=== PATIENT | male | born 1945 | race Caucasian/White ===

== ENCOUNTER 2024-05-16 06:09 | Emergency (ER) | payer MEDICARE, OTHER ==
[~2024-05-16] VITALS: Ht 170.2 cm; Wt 79.4 kg
[2024-05-16 07:21] LABS: BASOPHILS # (AUTO) 0.1 K/UL (0.0-0.2); BASOPHILS % (AUTO) 0.4 % (0.0-2.0); EOSINOPHILS # (AUTO) 0.2 K/uL (0.0-0.7); HEMATOCRIT 44.6 % (36.7-47.1); HEMOGLOBIN 14.5 g/dL (12.5-16.3); LYMPHOCYTES % (AUTO) 11.1 % (20.5-51.5); MEAN CORPUSCULAR HEMOGLOBIN 27.2 uug (23.8-33.4); MEAN CORPUSCULAR HGB CONC 32 g/dL (32.5-36.3); MEAN CORPUSCULAR VOLUME 83.8 fL (73.0-96.2); MONOCYTES # (AUTO) 0.6 K/uL (0.1-1.30); MONOCYTES % (AUTO) 3.1 % (0.0-11.0); NEUTROPHILS % (AUTO) 84.4 % (38.5-71.5); PLATELET COUNT (AUTO) 229 K/uL (152-348); RED BLOOD CELL COUNT(AUTO) 5.33 MIL/uL (4.06-5.63); WHITE BLOOD COUNT (AUTO) 17.8 K/uL (3.6-10.2)
[2024-05-16 07:38] LABS: ALANINE AMINOTRANSFERASE 23 U/L (16-63); ALBUMIN 3.8 g/dL (3.4-5.0); ALKALINE PHOSPHATASE 145 U/L (50-136); ASPARTATE AMINOTRANSFERASE 10 U/L (15-37); BILIRUBIN,DIRECT 0.2 mg/dL (0.0-0.2); BILIRUBIN,TOTAL 0.7 mg/dL (0.2-1.0); CALCIUM 10.5 mg/dL (8.5-10.1); CARBON DIOXIDE 20 mmol/L (21-32); CHLORIDE 101 mmol/L (98-107); CREATININE 1.5 mg/dL (0.6-1.3); LIPASE 159 U/L (16-77); POTASSIUM 4.9 mmol/L (3.5-5.1); SODIUM SERUM 136 mmol/L (136-145); TOTAL PROTEIN, SERUM 7.6 g/dL (6.4-8.2); UREA NITROGEN, BLOOD 31 mg/dL (7-18)
[2024-05-16 08:12] LABS: GLUCOSE 497 mg/dL (74-106)
[2024-05-16] MEDS ORDERED: INSULIN REGULAR, HUMAN 1000 UNIT/10 ML VIAL ONE (08:42)
[2024-05-16] MEDS: IV NORMAL SALINE 1000 ML BAG IV ONE (08:46)
[2024-05-16] MEDS: INSULIN REGULAR, HUMAN 1000 UNIT/10 ML VIAL IV ONE (08:53)
[2024-05-16 09:32] LABS: *BILIRUBIN,URIN NEGATIVE (NEGATIVE); *BLOOD, URINE 2+ (NEGATIVE); *CLARITY,URINE CLEAR (CLEAR); *COLOR,URINE YELLOW (YELLOW); *KETONES,URINE 1+ (NEGATIVE); *PROTEIN,URINE NEGATIVE (NEGATIVE); *UROBILINOGEN,URINE 0.2 E.U./dl (NORMAL); LEUKOCYTE ESTERASE ,URINE NEGATIVE (NEGATIVE); NITRITE, URINE NEGATIVE (NEGATIVE)
[2024-05-16 09:37] LABS: UGLUCOSE 3+ (NEGATIVE)
[2024-05-16 09:43] LABS: BACTERIA,URINE FEW /HPF (NONE SEEN); RBC,URINE 20-50 /HPF (0-3); SQUAMOUS EPITHELIAL CELL,UR FEW /HPF (NONE SEEN); WBC,URINE 0-3 /HPF (0-3)
[2024-05-16 09:44] LABS: SPERM,URINE FEW /HPF (NONE SEEN)
[2024-05-16] MEDS ORDERED: TAMS-3 PO (10:41)
[2024-05-16] MEDS ORDERED: POLY17PO4 PO (10:41)
[2024-05-16 11:12] VITALS: BP 138/76; O2SAT 98
== END 2024-05-16 11:13 | disposition home or self-care (01) ==
LOC: ER 06:34
DX: I31.39 Other pericardial effusion (noninflammatory) (principal); S32.028A Other fracture of second lumbar vertebra, initial encounter for closed fracture; R10.30 Lower abdominal pain, unspecified; K59.00 Constipation, unspecified; R33.9 Retention of urine, unspecified; F03.90 Unspecified dementia, unspecified severity, without behavioral disturbance, psychotic disturbance, mood disturbance, and anxiety; E11.65 Type 2 diabetes mellitus with hyperglycemia; D72.829 Elevated white blood cell count, unspecified; R91.1 Solitary pulmonary nodule; N18.9 Chronic kidney disease, unspecified; R31.9 Hematuria, unspecified; D18.09 Hemangioma of other sites; X58.XXXA Exposure to other specified factors, initial encounter; Y93.89 Activity, other specified; Y92.89 Other specified places as the place of occurrence of the external cause; Y99.8 Other external cause status
CPT/HCPCS: 99285; 74176; 96374; 96361; 80076; 80048; 81001; 82962; 83690; 85025; 36415; 51702; J1815; J7040; A4606; A4663

== ENCOUNTER 2024-10-19 04:45 | Inpatient (IN) | payer MEDICARE, OTHER ==
[~2024-10-19] VITALS: Ht 167.6 cm; Wt 79.4 kg
[~2024-10-19 04:45] MED LIST: POLY17PO4 PO; TAMS-3 PO
[2024-10-19] MEDS: IV NS 1000 ML 1,000 ML IV ONE (05:58)
[2024-10-19 05:59] LABS: BASOPHILS # (AUTO) 0.1 K/UL (0.0-0.2); BASOPHILS % (AUTO) 0.5 % (0.0-2.0); EOSINOPHILS # (AUTO) 0.3 K/uL (0.0-0.7); EOSINOPHILS % (AUTO) 1.4 % (0.0-7.0); HEMATOCRIT 41.9 % (36.7-47.1); HEMOGLOBIN 13.7 g/dL (12.5-16.3); LYMPHOCYTES % (AUTO) 4.9 % (20.5-51.5); MEAN CORPUSCULAR HEMOGLOBIN 26.7 uug (23.8-33.4); MEAN CORPUSCULAR HGB CONC 33 g/dL (32.5-36.3); MEAN CORPUSCULAR VOLUME 81.5 fL (73.0-96.2); MONOCYTES # (AUTO) 1.4 K/uL (0.1-1.30); MONOCYTES % (AUTO) 6.6 % (0.0-11.0); NEUTROPHILS # (AUTO) 18.3 K/uL (1.8-8.9); NEUTROPHILS % (AUTO) 86.6 % (38.5-71.5); PLATELET COUNT (AUTO) 267 K/uL (152-348); RED BLOOD CELL COUNT(AUTO) 5.15 MIL/uL (4.06-5.63); RED CELL DISTRIBUTION WIDTH 14.7 % (12.1-16.2); WHITE BLOOD COUNT (AUTO) 21.1 K/uL (3.6-10.2)
[2024-10-19 06:08] LABS: CALCIUM 10.6 mg/dL (8.5-10.1); CARBON DIOXIDE 21 mmol/L (21-32); CHLORIDE 98 mmol/L (98-107); CREATININE 1.6 mg/dL (0.6-1.3); GLUCOSE 301 mg/dL (74-106); POTASSIUM 4.4 mmol/L (3.5-5.1); SODIUM SERUM 135 mmol/L (136-145); UREA NITROGEN, BLOOD 26 mg/dL (7-18)
[2024-10-19 06:19] LABS: *BILIRUBIN,URIN NEGATIVE (NEGATIVE); *BLOOD, URINE 2+ (NEGATIVE); *CLARITY,URINE CLOUDY (CLEAR); *COLOR,URINE YELLOW (YELLOW); *KETONES,URINE 2+ (NEGATIVE); *PROTEIN,URINE 1+ (NEGATIVE); *UROBILINOGEN,URINE 0.2 E.U./dl (NORMAL); LEUKOCYTE ESTERASE ,URINE 1+ (NEGATIVE); NITRITE, URINE NEGATIVE (NEGATIVE); PH,URINE 5.5 (5.0-8.0); UGLUCOSE 3+ (NEGATIVE)
[2024-10-19 06:22] LABS: ALANINE AMINOTRANSFERASE 24 U/L (16-63); ALBUMIN 3.1 g/dL (3.4-5.0); ALKALINE PHOSPHATASE 140 U/L (50-136); ASPARTATE AMINOTRANSFERASE 20 U/L (15-37); BILIRUBIN,TOTAL 0.7 mg/dL (0.2-1.0); NT-PRO BNP 118 pg/mL (0-125); TOTAL PROTEIN, SERUM 7.2 g/dL (6.4-8.2)
[2024-10-19 06:25] LABS: WBC,URINE 50-80 /HPF (0-3)
[2024-10-19 06:26] LABS: BACTERIA,URINE MODERATE /HPF (NONE SEEN); SQUAMOUS EPITHELIAL CELL,UR FEW /HPF (NONE SEEN); YEAST,URINE FEW /HPF (NONE SEEN)
[2024-10-19] MEDS ORDERED: DOCU100C36 PO (06:30)
[2024-10-19] MEDS ORDERED: ASPI81TA31 PO (06:30)
[2024-10-19] MEDS ORDERED: DUTA0.5C37 PO (06:30)
[2024-10-19] MEDS ORDERED: PIOG30TA10 PO (06:30)
[2024-10-19] MEDS ORDERED: SILO8CAP2 PO (06:30)
[2024-10-19] MEDS ORDERED: ATOR20TA PO (06:30)
[2024-10-19] MEDS ORDERED: RISP0.5T65 PO (06:30)
[2024-10-19] MEDS ORDERED: SEMA14TA PO (06:30)
[2024-10-19] MEDS ORDERED: OMEP40CA21 PO (06:30)
[2024-10-19] MEDS ORDERED: CARV6.252 PO (06:30)
[2024-10-19] MEDS ORDERED: OXCA150T13 PO (06:30)
[2024-10-19] MEDS ORDERED: DAPA10TA PO (06:30)
[2024-10-19] MEDS ORDERED: ALLO100T PO (06:30)
[2024-10-19] MEDS ORDERED: LINA145C PO (06:30)
[2024-10-19] MEDS ORDERED: GLIP10TA11 PO (06:30)
[2024-10-19 06:51] LABS: DIFFERENTIAL COMMENT 1
[2024-10-19] MEDS ORDERED: PIPERACILLIN/TAZOBACTAM/D5W 50 ML IV ONE (07:23)
[2024-10-19] MEDS: PIPERACILLIN SODIUM/TAZOBACTAM 3.375 G in IV DEXTROSE 5% 50 ML IV ONE (07:26)
[2024-10-19] MEDS ORDERED: MAGNESIUM HYDROXIDE 30 ML LIQUID UDC PO PRN (08:30)
[2024-10-19] MEDS ORDERED: ACETAMINOPHEN 325 MG TABLET PO PRN (08:30)
[2024-10-19] MEDS ORDERED: ONDANSETRON 4 MG/2 ML VIAL IV PRN (08:30)
[2024-10-19] MEDS ORDERED: REMEDY ESSENTIAL ZINC PASTE 113 GM TP PRN (08:30)
[2024-10-19] MEDS ORDERED: ENOXAPARIN SODIUM 40 MG/0.4 ML DISP.SYRIN SQ ONE (10:17)
[2024-10-19] MEDS: IV NS 1000 ML 1,000 ML IV PRN (10:27)
[2024-10-19] MEDS: ENOXAPARIN SODIUM 40 MG/0.4 ML DISP.SYRIN SQ SCH (10:30)
[2024-10-19] MEDS ORDERED: PIPERACILLIN SODIUM/TAZOBACTAM 3.375 G in IV DEXTROSE 5% 50 ML IV SCH (12:00)
[2024-10-19 14:58] VITALS: BP 128/63; TEMP 97.8; O2SAT 97
[2024-10-19 15:26] VITALS: BP 128/61; TEMP 97.9; O2SAT 92
[2024-10-19] MEDS: PIPERACILLIN SODIUM/TAZOBACTAM 3.375 G in IV DEXTROSE 5% 100 ML IV SCH (16:19)
[2024-10-19 19:42] VITALS: BP 106/49; TEMP 98.4; O2SAT 92
[2024-10-19] MEDS ORDERED: DEXTROSE 50% 50 ML DISP.SYRIN IV PRN (23:00)
[2024-10-19 23:09] LABS: *CREATININE,URINE 23.9 mg/dL (30-125); *URINE TOTAL PROTEIN RANDOM 36.1 mg/dL (<150/24HR)
[2024-10-19 23:11] LABS: *BILIRUBIN,URIN NEGATIVE (NEGATIVE); *BLOOD, URINE 2+ (NEGATIVE); *CLARITY,URINE CLEAR (CLEAR); *COLOR,URINE YELLOW (YELLOW); *KETONES,URINE TRACE (NEGATIVE); *PROTEIN,URINE 1+ (NEGATIVE); *UROBILINOGEN,URINE 0.2 E.U./dl (NORMAL); LEUKOCYTE ESTERASE ,URINE TRACE (NEGATIVE); NITRITE, URINE NEGATIVE (NEGATIVE); PH,URINE 5.5 (5.0-8.0); UGLUCOSE 3+ (NEGATIVE)
[2024-10-19 23:23] LABS: BACTERIA,URINE FEW /HPF (NONE SEEN); MUCUS,URINE FEW /LPF (0-FEW); SQUAMOUS EPITHELIAL CELL,UR FEW /HPF (NONE SEEN); WBC,URINE 0-3 /HPF (0-3)
[2024-10-20] VITALS (7 sets, daily range): BP systolic 99–123; BP diastolic 58–75; TEMP 97.4–98.9; O2SAT 93–98
[2024-10-20] MEDS: PANTOPRAZOLE SODIUM 40 MG TABLET.DR PO SCH (06:32)
[2024-10-20] MEDS: BLOOD SUGAR DIAGNOSTIC 1 EACH STRIP VI SCH (06:42)
[2024-10-20 07:08] LABS: BASOPHILS # (AUTO) 0.1 K/UL (0.0-0.2); BASOPHILS % (AUTO) 0.6 % (0.0-2.0); EOSINOPHILS # (AUTO) 0.3 K/uL (0.0-0.7); EOSINOPHILS % (AUTO) 2.4 % (0.0-7.0); HEMATOCRIT 33.3 % (36.7-47.1); HEMOGLOBIN 11.3 g/dL (12.5-16.3); LYMPHOCYTES # (AUTO) 1.5 K/uL (0.8-4.8); LYMPHOCYTES % (AUTO) 13.4 % (20.5-51.5); MEAN CORPUSCULAR HEMOGLOBIN 27.7 uug (23.8-33.4); MEAN CORPUSCULAR HGB CONC 34 g/dL (32.5-36.3); MEAN CORPUSCULAR VOLUME 81.5 fL (73.0-96.2); MONOCYTES # (AUTO) 1.3 K/uL (0.1-1.30); MONOCYTES % (AUTO) 11.4 % (0.0-11.0); NEUTROPHILS # (AUTO) 8.3 K/uL (1.8-8.9); NEUTROPHILS % (AUTO) 72.2 % (38.5-71.5); PLATELET COUNT (AUTO) 207 K/uL (152-348); RED BLOOD CELL COUNT(AUTO) 4.09 MIL/uL (4.06-5.63); RED CELL DISTRIBUTION WIDTH 14.5 % (12.1-16.2); WHITE BLOOD COUNT (AUTO) 11.6 K/uL (3.6-10.2)
[2024-10-20 07:23] LABS: DIFFERENTIAL COMMENT 1
[2024-10-20 07:30] LABS: ALANINE AMINOTRANSFERASE 28 U/L (16-63); ALBUMIN 2.3 g/dL (3.4-5.0); ALKALINE PHOSPHATASE 105 U/L (50-136); ASPARTATE AMINOTRANSFERASE 38 U/L (15-37); BILIRUBIN,DIRECT 0.1 mg/dL (0.0-0.2); BILIRUBIN,TOTAL 0.3 mg/dL (0.2-1.0); CARBON DIOXIDE 21 mmol/L (21-32); CHLORIDE 105 mmol/L (98-107); CREATININE 1.4 mg/dL (0.6-1.3); GLUCOSE 282 mg/dL (74-106); MAGNESIUM 2.4 mg/dL (1.8-2.4); PHOSPHOROUS 3.5 mg/dL (2.5-4.9); POTASSIUM 3.7 mmol/L (3.5-5.1); SODIUM SERUM 134 mmol/L (136-145); TOTAL PROTEIN, SERUM 6.3 g/dL (6.4-8.2); UREA NITROGEN, BLOOD 29 mg/dL (7-18)
[2024-10-20] MEDS: INSULIN REGULAR, HUMAN 1000 UNIT/10 ML VIAL SQ PRN (08:05)
[2024-10-20 08:09] LABS: CREATINE KINASE, TOTAL 1171 U/L (39-308)
[2024-10-20 08:36] LABS: THYROID STIMULATING HORMONE 0.925 mIU/mL (0.358-3.740)
[2024-10-20] MEDS ORDERED: Linaclotide (Linzess) 145 MCG) PO SCH (09:00)
[2024-10-20] MEDS: PIOGLITAZONE HCL 15 MG TABLET PO SCH (09:09)
[2024-10-20] MEDS: DAPAGLIFLOZIN PROPANEDIOL 10 MG TABLET PO SCH (09:09)
[2024-10-20] MEDS: ASPIRIN 81 MG TAB.CHEW PO SCH (09:09)
[2024-10-20] MEDS: DOCUSATE SODIUM 100 MG CAPSULE PO SCH (09:10)
[2024-10-20] MEDS: DUTASTERIDE 0.5 MG CAPSULE PO SCH (09:10)
[2024-10-20] MEDS: OXCARBAZEPINE 150 MG TABLET PO SCH (09:18)
[2024-10-20] MEDS ORDERED: LINA290C PO (14:23)
[2024-10-20] MEDS ORDERED: CARV6.252 PO (14:27)
[2024-10-20] MEDS ORDERED: RISP1TAB7 PO (15:09)
[2024-10-20] MEDS: CARVEDILOL 6.25 MG TABLET PO SCH (18:06)
[2024-10-20] MEDS ORDERED: Medication Not On Formulary EA (Silodosin (Rapaflo) 8 MG) PO SCH (21:00)
[2024-10-20] MEDS: ATORVASTATIN 20 MG TABLET PO SCH (21:14)
[2024-10-20] MEDS: SILODOSIN 8 MG PO SCH (21:14)
[2024-10-20] MEDS: ALLOPURINOL 100 MG TABLET PO SCH (21:14)
[2024-10-20] MEDS: risperiDONE 1 MG TABLET PO SCH (21:14)
[2024-10-20] MEDS: INSULIN REGULAR, HUMAN 300 UNITS/3 ML VIAL SQ PRN (21:37)
[2024-10-21] VITALS (7 sets, daily range): BP systolic 103–146; BP diastolic 50–71; TEMP 97.2–98; O2SAT 90–98
[2024-10-21 06:09] LABS: PTH, INTACT 20 pg/mL (15-65)
[2024-10-21 07:52] LABS: BASOPHILS % (AUTO) 0.3 % (0.0-2.0); EOSINOPHILS # (AUTO) 0.6 K/uL (0.0-0.7); EOSINOPHILS % (AUTO) 4.7 % (0.0-7.0); HEMATOCRIT 35.2 % (36.7-47.1); HEMOGLOBIN 11.8 g/dL (12.5-16.3); LYMPHOCYTES # (AUTO) 3.1 K/uL (0.8-4.8); LYMPHOCYTES % (AUTO) 22.6 % (20.5-51.5); MEAN CORPUSCULAR HEMOGLOBIN 27.4 uug (23.8-33.4); MEAN CORPUSCULAR HGB CONC 34 g/dL (32.5-36.3); MEAN CORPUSCULAR VOLUME 81.3 fL (73.0-96.2); MONOCYTES # (AUTO) 1.2 K/uL (0.1-1.30); MONOCYTES % (AUTO) 8.8 % (0.0-11.0); NEUTROPHILS # (AUTO) 8.7 K/uL (1.8-8.9); NEUTROPHILS % (AUTO) 63.6 % (38.5-71.5); PLATELET COUNT (AUTO) 213 K/uL (152-348); RED BLOOD CELL COUNT(AUTO) 4.32 MIL/uL (4.06-5.63); RED CELL DISTRIBUTION WIDTH 14.6 % (12.1-16.2); WHITE BLOOD COUNT (AUTO) 13.7 K/uL (3.6-10.2)
[2024-10-21 08:09] LABS: DIFFERENTIAL COMMENT 1
[2024-10-21 08:11] LABS: CALCIUM 9.5 mg/dL (8.5-10.1); CARBON DIOXIDE 23 mmol/L (21-32); CHLORIDE 105 mmol/L (98-107); CREATININE 1.3 mg/dL (0.6-1.3); GLUCOSE 130 mg/dL (74-106); PHOSPHOROUS 1.9 mg/dL (2.5-4.9); POTASSIUM 3.6 mmol/L (3.5-5.1); SODIUM SERUM 138 mmol/L (136-145); UREA NITROGEN, BLOOD 24 mg/dL (7-18)
[2024-10-21] MEDS ORDERED: Medication Not On Formulary EA (Semaglutide (Rybelsus) 14 MG) PO SCH (09:00)
[2024-10-21] MEDS: SEMAGLUTIDE 14 MG PO SCH (09:35)
[2024-10-21] MEDS: LINZESS 290 MCG PO SCH (09:36)
[2024-10-21] MEDS: FLUCONAZOLE 200 MG/NS 100ML IV 200 MG in PREMIXED 1 EACH IV ONE (11:48)
[2024-10-21] MEDS: NEUTRA PHOS PACKET PO ONE (17:32)
[2024-10-22] VITALS (7 sets, daily range): BP systolic 98–137; BP diastolic 60–77; TEMP 97.3–98.5; O2SAT 93–97
[2024-10-22 07:00] LABS: BASOPHILS # (AUTO) 0.1 K/UL (0.0-0.2); BASOPHILS % (AUTO) 0.6 % (0.0-2.0); EOSINOPHILS # (AUTO) 0.6 K/uL (0.0-0.7); EOSINOPHILS % (AUTO) 4.7 % (0.0-7.0); HEMATOCRIT 37.5 % (36.7-47.1); HEMOGLOBIN 12.5 g/dL (12.5-16.3); LYMPHOCYTES # (AUTO) 3.4 K/uL (0.8-4.8); LYMPHOCYTES % (AUTO) 29.2 % (20.5-51.5); MEAN CORPUSCULAR HEMOGLOBIN 26.8 uug (23.8-33.4); MEAN CORPUSCULAR HGB CONC 33 g/dL (32.5-36.3); MEAN CORPUSCULAR VOLUME 80.4 fL (73.0-96.2); MONOCYTES % (AUTO) 8.5 % (0.0-11.0); NEUTROPHILS # (AUTO) 6.7 K/uL (1.8-8.9); PLATELET COUNT (AUTO) 217 K/uL (152-348); RED BLOOD CELL COUNT(AUTO) 4.67 MIL/uL (4.06-5.63); RED CELL DISTRIBUTION WIDTH 14.4 % (12.1-16.2); WHITE BLOOD COUNT (AUTO) 11.8 K/uL (3.6-10.2)
[2024-10-22 07:10] LABS: DIFFERENTIAL COMMENT 1
[2024-10-22 07:16] LABS: CALCIUM 9.4 mg/dL (8.5-10.1); CARBON DIOXIDE 23 mmol/L (21-32); CHLORIDE 104 mmol/L (98-107); CREATININE 1.2 mg/dL (0.6-1.3); GLUCOSE 181 mg/dL (74-106); MAGNESIUM 1.9 mg/dL (1.8-2.4); PHOSPHOROUS 2.5 mg/dL (2.5-4.9); POTASSIUM 3.7 mmol/L (3.5-5.1); SODIUM SERUM 136 mmol/L (136-145); UREA NITROGEN, BLOOD 17 mg/dL (7-18)
[2024-10-22] MEDS ORDERED: FLUC200T8 PO (09:03)
[2024-10-22] MEDS: FLUCONAZOLE 200 MG/NS 100ML IV 200 MG in PREMIXED 1 EACH IV SCH (11:16)
[2024-10-22] MEDS: FUROSEMIDE 20 MG/2 ML VIAL IV SCH (14:54)
[2024-10-23 00:18] VITALS: BP 103/69; TEMP 98.6; O2SAT 95
[2024-10-23 04:01] VITALS: BP 104/62; TEMP 97.9; O2SAT 93
[2024-10-23 07:38] VITALS: BP 119/64; TEMP 97.9; O2SAT 94
[2024-10-23] MEDS ORDERED: FURO-152 PO (09:17)
[2024-10-23 10:07] LABS: A/G RATIO 0.8 (0.7-1.7); ALBUMIN 2.5 g/dL (2.9-4.4); ALPHA-1-GLOBULIN 0.3 g/dL (0.0-0.4); ALPHA-2-GLOBULIN 1.1 g/dL (0.4-1.0); BETA GLOBULIN 0.8 g/dL (0.7-1.3); GAMMA GLOBULIN 0.9 g/dL (0.4-1.8); GLOBULIN, TOTAL 3.2 g/dL (2.2-3.9); M-SPIKE Not Observed g/dL (Not Observed); PROTEIN, TOTAL 5.7 g/dL (6.0-8.5)
[2024-10-23 10:56] VITALS: BP 110/67; TEMP 98; O2SAT 94
[2024-10-23] MEDS ORDERED: FLUCONAZOLE 200 MG TABLET PO SCH (15:00)
[2024-10-24] MEDS ORDERED: FLUCONAZOLE 200 MG TABLET PO SCH (17:00)
== END 2024-10-23 15:45 | disposition home health service (06) | DRG 871 ==
LOC: ER 04:52 → TRANSITION 09:26 → TELE3 13:24
PROVIDERS: ADMIT Student in an Organized Health Care Education/Training Program; ATTEND Student in an Organized Health Care Education/Training Program
DX: A41.9 Sepsis, unspecified organism (principal); G92.8 Other toxic encephalopathy; N17.0 Acute kidney failure with tubular necrosis; I50.33 Acute on chronic diastolic (congestive) heart failure; E87.1 Hypo-osmolality and hyponatremia; B37.49 Other urogenital candidiasis; E44.0 Moderate protein-calorie malnutrition; B37.7 Candidal sepsis; R65.20 Severe sepsis without septic shock; E78.5 Hyperlipidemia, unspecified; N40.0 Benign prostatic hyperplasia without lower urinary tract symptoms; E11.51 Type 2 diabetes mellitus with diabetic peripheral angiopathy without gangrene; E11.65 Type 2 diabetes mellitus with hyperglycemia; E83.52 Hypercalcemia; D64.9 Anemia, unspecified; Z87.19 Personal history of other diseases of the digestive system; Z86.73 Personal history of transient ischemic attack (TIA), and cerebral infarction without residual deficits; Z79.84 Long term (current) use of oral hypoglycemic drugs; Z79.82 Long term (current) use of aspirin; Z79.899 Other long term (current) drug therapy; F03.90 Unspecified dementia, unspecified severity, without behavioral disturbance, psychotic disturbance, mood disturbance, and anxiety; Z91.81 History of falling
CPT/HCPCS: 36415; 70450; 71045; 76770; 83605; 83735; 83970; 84100; 84155; 84165; 84300; 84443; 84484; 85025; 87040; 87086; 93307; A4606; A4663; G0378; J1450; J1650; J1815; J1940; J2543; J7040; J8499